=== PATIENT | female | born 1970 | race Caucasian/White ===

== ENCOUNTER 2024-02-05 15:00 | Inpatient (IN) | payer OTHER ==
[~2024-02-05] VITALS: Ht 162.6 cm; Wt 51.3 kg
[2024-02-05 13:13] LABS: BASOPHILS # (AUTO) 0.06 K/uL (0.00-0.20); BASOPHILS % (AUTO) 0.7 % (0.0-5.0); EOSINOPHILS # (AUTO) 0.26 K/uL (0.00-0.70); EOSINOPHILS % (AUTO) 3.1 % (0.0-8.0); HEMATOCRIT 41.7 % (36-48); IMMATURE GRANULOCYTE ABSOLUTE 0.04 K/uL (0-1); LYMPHOCYTES # (AUTO) 2.2 K/uL (1.0-4.8); MEAN CORPUSCULAR HEMOGLOBIN 29.3 pg (27.0-33.0); MEAN CORPUSCULAR HGB CONC 32.4 g/dL (32.0-36.0); MEAN CORPUSCULAR VOLUME 90.7 fL (79-99); MONOCYTES # (AUTO) 0.5 K/uL (0.1-1.0); NEUTROPHILS # (AUTO) 5.4 K/uL (1.8-7.7); NEUTROPHILS % (AUTO) 63.7 % (40.0-77.0); PLATELET COUNT (AUTO) 346 K/uL (130-400); RED CELL DISTRIBUTION WIDTH 14.5 % (11.0-15.5); WHITE BLOOD COUNT (AUTO) 8.5 K/uL (4.8-10.8)
[2024-02-05 13:31] LABS: ALBUMIN 3.6 g/dL (3.5-5.0); BILIRUBIN,TOTAL 0.3 mg/dL (0.2-1.0); CREATININE 2.5 mg/dL (0.5-1.0); POTASSIUM 3.2 mmol/L (3.5-5.1); TOTAL PROTEIN, SERUM 7.2 g/dL (6.0-8.3)
[2024-02-05 13:33] LABS: PROTHROMBIN TIME 10.8 SEC (9.6-11.6)
[2024-02-05 13:35] LABS: PARTIAL THROMBOPLASTIN TIME 24.6 SEC (26.3-35.5)
[2024-02-05 13:52] VITALS: BP 108/68; PULSE 88; RESP 18; TEMP 97.2
[~2024-02-05 15:00] MED LIST: CALCIUM PO; MVI PO
[2024-02-09] VITALS (24 sets, daily range): BP systolic 86–109; BP diastolic 33–72; PULSE 59–91; RESP 11–17; TEMP 97.7–98.1
[2024-02-09] MEDS ORDERED: NEOSTIGMINE METHYLSULFATE 1MG/ML IV ONE ×2 (08:50→14:30)
[2024-02-09] MEDS ORDERED: proPOFol 10 MG/ML 20ML VIAL IV ONE ×2 (08:50→14:30)
[2024-02-09] MEDS ORDERED: SUCCINYLCHOLINE CHLORIDE 20 MG/ML 10 ML VIAL ONE (08:50)
[2024-02-09] MEDS ORDERED: GLYCOPYRROLATE 0.2 MG/ML 5 ML VIAL ONE ×2 (08:50→14:29)
[2024-02-09] MEDS ORDERED: dexaMETHasone SOD PHOSPHATE 10MG/ML 1ML VIAL ONE ×2 (08:50→14:29)
[2024-02-09] MEDS ORDERED: LIDOCAINE PF 100MG/5ML (2%) SYRINGE 5ML ONE ×2 (08:50→14:29)
[2024-02-09] MEDS ORDERED: MIDAZOLAM HCL 1 MG/ML 2ML VIAL ONE ×2 (08:50→14:30)
[2024-02-09] MEDS ORDERED: rocuRONium bROMide 10MG/1ML 5ML VL ONE ×3 (08:51→16:12)
[2024-02-09] MEDS ORDERED: ondanSETRON 4MG INJ ONE ×2 (08:51→14:29)
[2024-02-09] MEDS ORDERED: FENTanyl CITRate PF 50 MCG/1 ML 2ML VIAL ONE (08:51)
[2024-02-09] MEDS: MEROPENEM 1 GM VIAL ONE (09:49)
[2024-02-09] MEDS: LACTATED RINGERS 1000ML 1,000 ML IV ONE (09:49)
[2024-02-09 10:16] LABS: CREATININE 2.3 mg/dL (0.5-1.0)
[2024-02-09 10:22] LABS: POTASSIUM 2.5 mmol/L (3.5-5.1)
[2024-02-09] MEDS: PoTASSium chloRIDE 20MEQ/100ML 100 ML IV ONE ×2 (10:53→13:21)
[2024-02-09] MEDS: LIDOCAINE PF 100MG/5ML (2%) SYRINGE 5ML ONE (11:57)
[2024-02-09] MEDS ORDERED: FENTanyl CITRate PF 50 MCG/1 ML 5ML AMP IV ONE (14:32)
[2024-02-09] MEDS ORDERED: ePHEDrine SULFate 50 MG/ML AMPULE ONE (15:10)
[2024-02-09] MEDS: BUPIvacaine/PF 0.25% 30ML VIAL IJ ONE (15:19)
[2024-02-09] MEDS: LIDOCAINE 1%-EPI 1:100,000 20 ML VIAL ONE (15:19)
[2024-02-09] MEDS: INDOCYANINE GREEN 25 MG VIAL IJ ONE (16:39)
[2024-02-09] MEDS: acetaMINOPHEN 325 MG TAB PO SCH (18:00)
[2024-02-09] MEDS: LACTATED RINGERS 1000ML 1,000 ML IV SCH (18:00)
[2024-02-09] MEDS ORDERED: ondanSETRON 4MG INJ IVP PRN (18:00)
[2024-02-09] MEDS ORDERED: hydroMORPHone 0.5 MG SYG (0.5MG/0.5ML) IVP PRN (18:00)
[2024-02-09] MEDS: ondanSETRON 4MG INJ ONE (19:00)
[2024-02-09] MEDS: acetaMINOPHEN 1,000 MG/100 ML VIAL IV ONE (19:01)
[2024-02-09] MEDS: MEPERIDINE-PF 25 MG/ML SYG ONE (19:01)
[2024-02-09] MEDS: ALBUMIN (HUMAN) 5% 250 ML IV ONE (19:02)
[2024-02-09] MEDS: GABApentin 100 MG CAPSULE PO SCH (21:00)
[2024-02-09] MEDS: OXYcodONE HCL 5 MG TAB PO PRN (22:12)
[2024-02-10] VITALS (9 sets, daily range): BP systolic 86–106; BP diastolic 49–70; PULSE 62–95; RESP 16–20; TEMP 97.6–98.4; O2SAT 96
[2024-02-10 04:30] LABS: HEMATOCRIT 34.1 % (36-48); IMMATURE GRANULOCYTE ABSOLUTE 0.06 K/uL (0-1); LYMPHOCYTES # (AUTO) 0.7 K/uL (1.0-4.8); LYMPHOCYTES % (AUTO) 7.1 % (21.0-51.0); MEAN CORPUSCULAR HEMOGLOBIN 28.9 pg (27.0-33.0); MEAN CORPUSCULAR HGB CONC 31.1 g/dL (32.0-36.0); MEAN CORPUSCULAR VOLUME 92.9 fL (79-99); MONOCYTES # (AUTO) 0.4 K/uL (0.1-1.0); NEUTROPHILS # (AUTO) 8.7 K/uL (1.8-7.7); NEUTROPHILS % (AUTO) 88.3 % (40.0-77.0); PLATELET COUNT (AUTO) 250 K/uL (130-400); RED BLOOD CELL COUNT(AUTO) 3.67 MIL/uL (4.00-5.50); RED CELL DISTRIBUTION WIDTH 14.2 % (11.0-15.5); WHITE BLOOD COUNT (AUTO) 9.9 K/uL (4.8-10.8)
[2024-02-10 04:46] LABS: CREATININE 2.3 mg/dL (0.5-1.0); POTASSIUM 3.6 mmol/L (3.5-5.1)
[2024-02-10] MEDS: ENOXAPARIN SODIUM 40 MG/0.4 ML SYRINGE SQ SCH (08:46)
[2024-02-10] MEDS: FAMOTIDINE 20MG VIAL IV SCH (08:46)
[2024-02-10] MEDS: LACTATED RINGERS 1000ML 1,000 ML IV SCH (11:50)
[2024-02-10] MEDS: 0.9%NACL 1000ML 1,000 ML IV SCH (13:26)
[2024-02-10] MEDS: GABApentin 100 MG CAPSULE PO SCH (13:26)
[2024-02-10 16:30] LABS: HEMATOCRIT 30.7 % (36-48); MEAN CORPUSCULAR HEMOGLOBIN 29.3 pg (27.0-33.0); MEAN CORPUSCULAR HGB CONC 31.9 g/dL (32.0-36.0); MEAN CORPUSCULAR VOLUME 91.9 fL (79-99); RED BLOOD CELL COUNT(AUTO) 3.34 MIL/uL (4.00-5.50); RED CELL DISTRIBUTION WIDTH 14.6 % (11.0-15.5); WHITE BLOOD COUNT (AUTO) 9.1 K/uL (4.8-10.8)
[2024-02-10 20:19] LABS: APPEARANCE,URINE CLEAR (CLEAR); BILIRUBIN,URINE NEGATIVE (NEGATIVE); COLOR,URINE COLORLESS (YELLOW); GLUCOSE, URINE (UA) NEGATIVE (NEGATIVE); KETONES,URINE NEGATIVE (NEGATIVE); LEUKOCYTE ESTERASE ,URINE 250 Leu/uL (NEGATIVE); NITRATE,URINE NEGATIVE (NEGATIVE); PH,URINE 6.5 (5.0-8.0); PROTEIN,URINE NEGATIVE (NEGATIVE); UROBILINOGEN,URINE 0.2 mg/dL (0.2-1.0)
[2024-02-10 20:21] LABS: ADD UA MICROSCOPIC YES
[2024-02-10 20:22] LABS: CREATININE,URINE RANDOM 24.93 mg/dL (30-135); SODIUM,URINE RANDOM 14 mmol/l (40-220)
[2024-02-10 20:28] LABS: BACTERIA,URINE RARE /HPF (None Seen); MUCUS,URINE RARE LPF (None Seen)
[2024-02-11] VITALS (8 sets, daily range): BP systolic 94–108; BP diastolic 55–65; PULSE 64–83; RESP 16–17; TEMP 98–98.4; O2SAT 95
[2024-02-11 03:45] LABS: BASOPHILS # (AUTO) 0.01 K/uL (0.00-0.20); BASOPHILS % (AUTO) 0.2 % (0.0-5.0); EOSINOPHILS # (AUTO) 0.01 K/uL (0.00-0.70); EOSINOPHILS % (AUTO) 0.2 % (0.0-8.0); HEMATOCRIT 29.2 % (36-48); IMMATURE GRANULOCYTE ABSOLUTE 0.02 K/uL (0-1); LYMPHOCYTES # (AUTO) 1.8 K/uL (1.0-4.8); LYMPHOCYTES % (AUTO) 26.6 % (21.0-51.0); MEAN CORPUSCULAR HEMOGLOBIN 28.7 pg (27.0-33.0); MEAN CORPUSCULAR HGB CONC 31.2 g/dL (32.0-36.0); MEAN CORPUSCULAR VOLUME 92.1 fL (79-99); MONOCYTES # (AUTO) 0.4 K/uL (0.1-1.0); MONOCYTES % (AUTO) 6.1 % (3.0-13.0); NEUTROPHILS # (AUTO) 4.4 K/uL (1.8-7.7); NEUTROPHILS % (AUTO) 66.6 % (40.0-77.0); PLATELET COUNT (AUTO) 193 K/uL (130-400); RED BLOOD CELL COUNT(AUTO) 3.17 MIL/uL (4.00-5.50); RED CELL DISTRIBUTION WIDTH 14.6 % (11.0-15.5); WHITE BLOOD COUNT (AUTO) 6.6 K/uL (4.8-10.8)
[2024-02-11 03:59] LABS: CREATININE 2.4 mg/dL (0.5-1.0)
[2024-02-11 04:01] LABS: POTASSIUM 2.7 mmol/L (3.5-5.1)
[2024-02-11] MEDS: PoTASSium chloRIDE 20MEQ ER 20 MEQ ERTAB PO ONE ×2 (04:35→11:26)
[2024-02-11] MEDS: miDODRine HCL 5 MG TABLET PO ONE (11:26)
[2024-02-11] MEDS: SOD FERRIC GLUC COMPLEX/SUC 125 MG in 0.9%NACL 100ML 100 ML IV SCH (11:26)
[2024-02-11] MEDS: miDODRine HCL 5 MG TABLET PO SCH (22:30)
[2024-02-12 03:40] VITALS: BP 104/72; PULSE 67; RESP 16; TEMP 98.1
[2024-02-12 04:49] LABS: BASOPHILS # (AUTO) 0.03 K/uL (0.00-0.20); BASOPHILS % (AUTO) 0.4 % (0.0-5.0); EOSINOPHILS # (AUTO) 0.12 K/uL (0.00-0.70); EOSINOPHILS % (AUTO) 1.7 % (0.0-8.0); HEMATOCRIT 30.7 % (36-48); IMMATURE GRANULOCYTE ABSOLUTE 0.03 K/uL (0-1); LYMPHOCYTES % (AUTO) 27.5 % (21.0-51.0); MEAN CORPUSCULAR HEMOGLOBIN 28.4 pg (27.0-33.0); MEAN CORPUSCULAR HGB CONC 30.6 g/dL (32.0-36.0); MEAN CORPUSCULAR VOLUME 92.7 fL (79-99); MONOCYTES # (AUTO) 0.5 K/uL (0.1-1.0); MONOCYTES % (AUTO) 6.4 % (3.0-13.0); NEUTROPHILS # (AUTO) 4.5 K/uL (1.8-7.7); NEUTROPHILS % (AUTO) 63.6 % (40.0-77.0); PLATELET COUNT (AUTO) 224 K/uL (130-400); RED BLOOD CELL COUNT(AUTO) 3.31 MIL/uL (4.00-5.50); RED CELL DISTRIBUTION WIDTH 14.9 % (11.0-15.5); WHITE BLOOD COUNT (AUTO) 7.1 K/uL (4.8-10.8)
[2024-02-12 05:05] LABS: CREATININE 1.9 mg/dL (0.5-1.0); POTASSIUM 3.1 mmol/L (3.5-5.1)
[2024-02-12 08:00] VITALS: BP 111/62; PULSE 68; RESP 18; TEMP 98.3; O2SAT 99
[2024-02-12] MEDS ORDERED: PoTASSium chloRIDE 20MEQ/100ML 100 ML IV PRN (09:30)
[2024-02-12] MEDS ORDERED: PoTASSium chloRIDE 20MEQ ER 20 MEQ ERTAB PO PRN (09:30)
[2024-02-12] MEDS: PoTASSium chl 10% ELIXIR 20MEQ 20 MEQ/15 ML UDCUP PO PRN (10:17)
[2024-02-12 12:00] VITALS: BP 111/62; PULSE 56; RESP 18; TEMP 98.4
[2024-02-12] MEDS ORDERED: MIDO5TAB4 PO (13:03)
== END 2024-02-12 14:15 | disposition home or self-care (01) | DRG 330 ==
LOC: DAHIP 02-09 09:10 → 4BH 02-09 19:37
PROVIDERS: ADMIT Surgery; ATTEND Surgery
PROC: 8E0W4CZ Robotic Assisted Procedure of Trunk Region, Percutaneous Endoscopic Approach (ICD-10-PCS; 2024-02-09)
PROC: 0DJD8ZZ Inspection of Lower Intestinal Tract, Via Natural or Artificial Opening Endoscopic (ICD-10-PCS; 2024-02-09)
PROC: 0DBN4ZZ Excision of Sigmoid Colon, Percutaneous Endoscopic Approach (ICD-10-PCS; principal; 2024-02-09 14:41)
PROC: 0DBP4ZZ Excision of Rectum, Percutaneous Endoscopic Approach (ICD-10-PCS; 2024-02-09 14:41)
PROC: 0UB94ZX Excision of Uterus, Percutaneous Endoscopic Approach, Diagnostic (ICD-10-PCS; 2024-02-09 14:41)
DX: C18.7 Malignant neoplasm of sigmoid colon (principal); E44.0 Moderate protein-calorie malnutrition; E87.1 Hypo-osmolality and hyponatremia; E87.20 Acidosis, unspecified; N17.9 Acute kidney failure, unspecified; Z68.1 Body mass index [BMI] 19.9 or less, adult; R71.0 Precipitous drop in hematocrit; D26.1 Other benign neoplasm of corpus uteri; N18.9 Chronic kidney disease, unspecified; I95.9 Hypotension, unspecified; E87.6 Hypokalemia; N20.0 Calculus of kidney; E86.9 Volume depletion, unspecified; N73.6 Female pelvic peritoneal adhesions (postinfective); Z87.442 Personal history of urinary calculi
CPT/HCPCS: 36415; 45330; 76770; 80048; 80053; 81001; 82533; 82570; 83540; 83550; 84132; 84300; 84702; 84703; 85025; 85027; 85610; 85730; 86850; 86900; 86901; 87086; 88307; 88309; 93005; A4344; G0378; J0330; J1100; J1650; J2002; J2175; J2185; J2250; J2405; J2704; J2710; J2916; J3010; J3480; J3490; J7030; J7120; P9045; A4215; A4221; A4222; A4223; A4600; A4649; A4663; A4930; A6260; C1769; G8980-CI; G8983-CI; J0665

== ENCOUNTER → 2024-02-08 | Outpatient (CLI) | payer OTHER | END | disposition home or self-care (01) | LOC: LAB 15:39 | PROVIDERS: ATTEND Internal Medicine | DX: Z32.01 Encounter for pregnancy test, result positive (principal) | CPT/HCPCS: 36415; 84702; 84703 ==